=== PATIENT | male | born 1985 | race Caucasian/White ===

== ENCOUNTER 2022-12-26 13:48 | Outpatient (CLI) | payer MEDICAID, SELFPAY | END 2022-12-26 13:49 | disposition home or self-care (01) | PROVIDERS: PCP Internal Medicine; Visit Provider Internal Medicine | DX: Z00.00 Encounter for general adult medical examination without abnormal findings (principal); Z13.6 Encounter for screening for cardiovascular disorders; Z13.9 Encounter for screening, unspecified | CPT/HCPCS: 80053; 80061 ==

== ENCOUNTER 2025-01-15 08:19 | Outpatient (CLI) | payer OTHER, SELFPAY | END 2025-01-15 08:20 | disposition home or self-care (01) | LOC: NFLDREF 01-20 19:03 | PROVIDERS: PCP Internal Medicine; Referring Provider Internal Medicine; Visit Provider Internal Medicine | DX: Z13.9 Encounter for screening, unspecified (principal) | CPT/HCPCS: 80053; 80061 ==